=== PATIENT | male | born 1965 | race Asian ===

== ENCOUNTER 2016-07-15 08:32 | Outpatient (CLI) | payer BC, OTHER | END 2016-07-15 08:33 | disposition home or self-care (01) | DX: I10 Essential (primary) hypertension (principal); Z12.5 Encounter for screening for malignant neoplasm of prostate ==

== ENCOUNTER 2017-01-03 08:38 | Outpatient (CLI) | payer BC, OTHER ==
[2017-01-06 06:37] LABS: TEST RESULT REPORT (())
== END 2017-01-03 08:39 | disposition home or self-care (01) ==
LOC: LAB.R 08:38
PROVIDERS: ATTEND Family Medicine
DX: J18.9 Pneumonia, unspecified organism (principal)
CPT/HCPCS: 81599; 87070; 87147; 87205